=== PATIENT | female | born 1965 ===

== ENCOUNTER 2016-08-11 09:00 | Day surgery (SDC) | payer OTHER ==
[2016-08-11] MEDS ORDERED: Lactated Ringer's 500 ML IV ONE (09:18)
[2016-08-11] MEDS ORDERED: Propofol 10 mg/ml Inj (20 ML) ONE (09:45)
[2016-08-11 10:17] VITALS: TEMP 97.5; O2SAT 100
[2016-08-11 10:30] VITALS: BP 107/67; PULSE 53; RESP 12
== END 2016-08-11 13:00 | disposition home or self-care (01) ==
LOC: H.ENDO 09:00
PROVIDERS: ATTEND Internal Medicine Gastroenterology
DX: Z12.11 Encounter for screening for malignant neoplasm of colon (principal); F32.9 Major depressive disorder, single episode, unspecified; K64.8 Other hemorrhoids

== ENCOUNTER 2016-10-18 16:55 | Emergency (ER) | payer OTHER ==
[2016-10-18 17:06] VITALS: BP 126/82; PULSE 78; RESP 18; O2SAT 99
[2016-10-18 18:10] LABS: BASO # 0.1 K/uL (0.0-0.2); BASO % 0.4 % (0.0-2.0); EOS # 0.2 K/uL (0.0-0.7); EOS % 1.2 % (0.0-4.0); HEMOGLOBIN 12.7 g/dL (12.0-16.0); LYMPH # 1.9 K/uL (1.0-4.3); LYMPH % 13.6 % (20.0-40.0); MEAN CELL VOLUME 87.8 fl (81.0-99.0); MEAN CORPUSCULAR HEMOGLOBIN 29.8 pg (27.0-31.0); MEAN CORPUSCULAR HGB CONC 33.9 g/dL (33.0-37.0); MEAN PLATELET VOLUME 9.6 fl (7.2-11.7); MONO % 7.1 % (0.0-10.0); NEUT # 10.9 K/uL (1.8-7.0); NEUT % 77.7 % (50.0-75.0); RBC 4.26 Mil/uL (3.80-5.20); RED CELL DISTRIBUTION WIDTH 13.5 % (11.5-14.5); WHITE BLOOD COUNT 14.1 K/uL (4.8-10.8)
[2016-10-18 18:16] LABS: VENOUS BLOOD GAS BASE EXCESS 3.6 mmol/L (0.0-2.0); VENOUS BLOOD GAS PCO2 61 mmHg (40-60); VENOUS BLOOD GAS PO2 22 mm/Hg (30-55); VENOUS BLOOD PH 7.32 (7.32-7.43)
[2016-10-18 18:20] LABS: ALB/GLOB RATIO 1.3 (1.0-2.1); ALBUMIN 4.3 g/dL (3.5-5.0); ALT/SGPT 32 U/L (9-52); AST/SGOT 25 U/L (14-36); BLOOD UREA NITROGEN 17 mg/dl (7-17); CALCIUM 8.8 mg/dL (8.4-10.2); GFR AFRICAN-AMERICAN > 60; GFR NON-AFRICAN AMERICAN > 60
--- NOTE | 2016-10-18 19:04 | ED PDOC ---
HPI: General Adult Time Seen by Provider: 10/18/16 17:11 Chief Complaint (Nursing): Abnormal Skin Integrity Chief Complaint (Provider): Abnormal Skin Integrity History Per: Patient History/Exam Limitations: no limitations Onset/Duration Of Symptoms: Days (Since last night, 10/17/2016.) Current Symptoms Are (Timing): Still Present Additional Complaint(s): 50 y/o female presents to the emergency department with a complaint of a left breast pain that started last night, 10/17/2016. Associated with pain, redness, warmth, and a very hard localized area on the breast since this morning. States for the last 3 days she had experienced fever, chills, and body aches and for the past week was experiencing a post nasal drip and runny nose. Patient reports taking Advil for fever; last dose at 14:00 today. Denies cough. PMD: [facility] in [place], [place] Past Medical History Reviewed: Historical Data, Nursing Documentation, Vital Signs Vital Signs: Last Vital Signs Temp 98.5 F 10/18/16 20:38 Pulse 78 10/18/16 17:04 Resp 18 10/18/16 17:04 BP 126/82 10/18/16 17:04 Pulse Ox 99 10/18/16 21:57 - Medical History PMH: No Chronic Diseases - Surgical History Surgical History: No Surg Hx - Family History Family History: States: Unknown Family Hx - Social History Current smoker - smoking cessation education provided: No Alcohol: None Drugs: Denies - Home Medications Home Medications: Ambulatory Orders Medication Instructions Recorded Amoxicillin/Clavulanate [Augmentin 1 tab PO BID #20 tab 10/18/16 875 MG-125 MG] Ibuprofen [Motrin Tab] 600 mg PO Q8 PRN #60 tab 10/18/16 - Allergies Allergies/Adverse Reactions: Allergies Allergy/AdvReac Type Severity Reaction Status Date / Time No Known Allergies Allergy Verified 10/18/16 17:03 Review of Systems ROS Statement: Except As Marked, All Systems Reviewed And Found Negative Constitutional: Positive for: Fever, Chills, Other (Body aches) ENT: Positive for: Nose Discharge (with post nasal drip) Cardiovascular: Positive for: Other (Left breast pain) Respiratory: Negative for: Cough Physical Exam - Reviewed Nursing Documentation Reviewed: Yes Vital Signs Reviewed: Yes - Physical Exam Appears: Positive for: Non-toxic, In Acute Distress (Mild painful distress) Head Exam: Positive for: ATRAUMATIC, NORMAL INSPECTION, NORMOCEPHALIC Skin: Positive for: Normal Color, Warm, Dry Cardiovascular/Chest: Positive for: Regular Rate, Rhythm, Other (left breast erythema extending up from the superior areola tracking caudally with regular boarders. Palpable firm area also just superior to areola and diffusely tender. ). Negative for: Chest Non Tender, Murmur Respiratory: Positive for: Normal Breath Sounds. Negative for: Accessory Muscle Use, Respiratory Distress Gastrointestinal/Abdominal: Positive for: Normal Exam, Soft. Negative for: Tenderness Extremity: Positive for: Normal ROM. Negative for: Pedal Edema Lymphatic: Positive for: Normal Exam. Negative for: Adenopathy (No palpable axillary lymphadenopathy.) Neurologic/Psych: Positive for: Alert, Oriented - Laboratory Results Result Diagrams: 10/18/16 18:00 10/18/16 18:00 - ECG O2 Sat by Pulse Oximetry: 99 (RA) Pulse Ox Interpretation: Normal Medical Decision Making Medical Decision Making: Time: 17:42 Initial impression: Mastitis. Differential includes sepsis, abscess, and breast cellulites. Initial plan: --Venous Blood Gas --COMP metabolic Panel --CBC w/ differential --Blood Culture STAT --IV Insertion --Breast Unilateral Left (US) --Reevaluation Time: 21:45 --Breast US FINDINGS: Solid nodules: None. Cystic masses: None. Architectural distortion: None. Acoustical shadowing: None. Skin thickening: None. Axillary adenopathy: None. IMPRESSION: No sonographic evidence of abscess in the left breast. Annual mammographic screening is recommended unless otherwise clinically indicated. Scribe Attestation: Documented by Lindsey Long, acting as a scribe for Milana Hicks MD. Provider Scribe Attestation: All medical record entries made by the Scribe were at my direction and personally dictated by me. I have reviewed the chart and agree that the record accurately reflects my personal performance of the history, physical exam, medical decision making, and the department course for this patient. I have also personally directed, reviewed, and agree with the discharge instructions and disposition. Disposition - Clinical Impression Clinical Impression: Mastitis - Disposition Referrals: [facility] [Outside] - 10/20/16 Disposition: Routine/Home Disposition Time: 23:00 Condition: IMPROVED Prescriptions: Amoxicillin/Clavulanate [Augmentin 875 MG-125 MG] 1 tab PO BID #20 tab Ibuprofen [Motrin Tab] 600 mg PO Q8 PRN #60 tab PRN Reason: Pain, Moderate (4-7) Instructions: Mastitis (ED) Print Language: TURKMEN
[2016-10-18 20:38] VITALS: TEMP 98.5
--- NOTE | 2016-10-18 21:45 | US ---
EXAM: US Left Breast Complete, limited CLINICAL HISTORY: 50 years old, female; Pain; Breast pain; Left; Additional info: Warm erythematous with localized firm area R/O abs TECHNIQUE: Static sonographic images of the left breast with image documentation utilizing a linear transducer. Imaging was obtained in all four quadrants, retroareolar region, and the axillae. COMPARISON: US - Breast 10/11/2015 8:55:53 AM FINDINGS: Solid nodules: None. Cystic masses: None. Architectural distortion: None. Acoustical shadowing: None. Skin thickening: None. Axillary adenopathy: None. IMPRESSION: No sonographic evidence of abscess in the left breast. Annual mammographic screening is recommended unless otherwise clinically indicated.
[2016-10-18] MEDS ORDERED: Potassium Chloride 20 mEq ER Tab PO STA (21:49)
[2016-10-18] MEDS ORDERED: Ampicillin/Sulbactam 3 GM in Sodium Chloride 0.9% 100 ML IVPB SCH (22:00)
[2016-10-18] MEDS ORDERED: Potassium Chloride 20 mEq ER Tab PO ONE (22:36)
== END 2016-10-19 00:11 | disposition home or self-care (01) ==
LOC: H.ER 16:55
DX: N61.1 Abscess of the breast and nipple (principal)

== ENCOUNTER 2016-11-05 23:00 | Emergency (ER) | payer OTHER ==
[2016-11-06 01:13] LABS: BASO % 0.5 % (0.0-2.0); EOS # 0.2 K/uL (0.0-0.7); HEMOGLOBIN 12.8 g/dL (12.0-16.0); LYMPH # 2.4 K/uL (1.0-4.3); LYMPH % 30.5 % (20.0-40.0); MEAN CELL VOLUME 88.6 fl (81.0-99.0); MEAN CORPUSCULAR HEMOGLOBIN 28.9 pg (27.0-31.0); MEAN CORPUSCULAR HGB CONC 32.6 g/dL (33.0-37.0); MEAN PLATELET VOLUME 9.1 fl (7.2-11.7); MONO # 0.6 K/uL (0.0-0.8); MONO % 7.7 % (0.0-10.0); NEUT # 4.7 K/uL (1.8-7.0); NEUT % 58.3 % (50.0-75.0); RBC 4.41 Mil/uL (3.80-5.20); RED CELL DISTRIBUTION WIDTH 13.7 % (11.5-14.5)
--- NOTE | 2016-11-06 01:16 | ED PDOC ---
HPI: General Adult Time Seen by Provider: 11/05/16 23:32 Chief Complaint (Nursing): Female Genitourinary Chief Complaint (Provider): Multiple Complaints History Per: Patient History/Exam Limitations: no limitations Additional Complaint(s): Elizabeth Cavazos, a 51 year old male, presents to the ED today with multiple complaints. The patient's first complaint is intermittent nose bleeds which she says stopped a few days ago. She states that her nose bleeds are associated with hemoptysis but she only has a cough when her nose bleeds. Denies chest pain , shortness of breath and leg swelling. The patient is also complaining of vaginal bleeding. She reports that she is currently on her menstrual period but her last period was a couple of months ago. She also states that she has only used 2 pads this cycle. The patient reports that she thinks she is menopausal. Denies diarrhea and abdominal pain. She also states that for the past 3 months she has been having swelling in th left breast. She states that she was seen by her PMD and also in the ED where she had a mammography done. The patient states that the problem still persists but there has been no changes. Denies redness, discharge and pain. The patient says she will follow up with her PMD again. Lastly, she states that she has been having head pressure for the past couple days but no pain. She states that it feels more like a pressure rather than pain. The patient states that she has not taken anything for the "pressure" as she did not know what it was. Past Medical History Reviewed: Historical Data, Nursing Documentation, Vital Signs Vital Signs: Last Vital Signs Temp 96.6 F L 11/05/16 23:20 Pulse 70 11/05/16 23:20 Resp 16 11/05/16 23:20 BP 130/86 11/05/16 23:20 Pulse Ox 100 11/06/16 01:55 - Medical History PMH: No Chronic Diseases - Surgical History Surgical History: No Surg Hx - Family History Family History: States: Unknown Family Hx - Home Medications Home Medications: Ambulatory Orders Medication Instructions Recorded No Known Home Med 11/06/16 - Allergies Allergies/Adverse Reactions: Allergies Allergy/AdvReac Type Severity Reaction Status Date / Time No Known Allergies Allergy Verified 11/05/16 23:19 Review of Systems ENT: Positive for: Nose Discharge (Nose bleed.), Other Respiratory: Positive for: Hemoptysis (only with nose bleeds.) Gastrointestinal: Negative for: Abdominal Pain, Diarrhea Genitourinary Female: Positive for: Vaginal Bleeding Neurological: Positive for: Headache (Head Pressure.) Physical Exam - Reviewed Nursing Documentation Reviewed: Yes Vital Signs Reviewed: Yes - Physical Exam Head Exam: Positive for: ATRAUMATIC, NORMAL INSPECTION, NORMOCEPHALIC Skin: Positive for: Normal Color, Warm, Dry Eye Exam: Positive for: Normal appearance, EOMI, PERRL ENT: Positive for: Normal ENT Inspection, Pharynx Is (No blood in pharynx.), Other (dry blood in right nostril but no active bleeding; No pulsatile source of bleeding or blood clots;Small area of erosion of mucosa on right septum.) Neck: Positive for: Normal, Painless ROM, Supple Cardiovascular/Chest: Positive for: Regular Rate, Rhythm, Chest Non Tender. Negative for: Tachycardia Respiratory: Positive for: Normal Breath Sounds. Negative for: Wheezing, Respiratory Distress Gastrointestinal/Abdominal: Positive for: Normal Exam, Soft. Negative for: Tenderness Back: Positive for: Normal Inspection Neurologic/Psych: Positive for: Alert, Oriented, Gait - Laboratory Results Result Diagrams: 11/06/16 00:48 11/06/16 00:48 - ECG O2 Sat by Pulse Oximetry: 100 (RA) Pulse Ox Interpretation: Normal Medical Decision Making Medical Decision Makin Initial Impression: 51 year old female presenting with headache, vaginal bleeding and nose bleed Differentials: Menstrual Period, Dysfunctional Uterine Bleeding, Uterine Fibroids, Headache, Migraine, Tension Headache, Sinusitis Initial Plan: * CT Head w/o Contrast * Basic Metabolic Panel * Dipstick * CBC * PTT * Prothrombin Time * Reevaluation Mammography Report from April 2016 Unilateral Diagnostic mammogram left breast History Abnormal Screening mammogram. Six month follow up Comparison Screening mammogram 10/11/2015 Findings Mammogram No significant abnormalities. No suspicious calcifications, masses or areas of parenchymal distortion. Negative examination for skin thickening, nipple retraction or other pathologic process. No interval change. Impression: BIRADS 2 benign findings. Recommendation: Continue annual screening, mammography , as per ACR guidelines Heterogeneously dense breast tissue which may obscure small masses. Breast Ultrasound October 2016 Comparison US Breast 10/11/2015 Findings No solid nodules No cystic masses No architectural distortion No acoustical shadowing No skin thickening No axillary adenopathy Impression: No sonograpic evidence of abscess in left breast. Annual mammographic screening is recommended unless otherwise clinically indicated. 1:41 CT Head Without Intravenous Contrast TECHNIQUE: Axial computed tomography images of the head/brain without intravenous contrast. This CT exam was performed using one or more of the following dose reduction techniques: automated exposure control, adjustment of the mA and/or kV according to patient size, and/or use of iterative reconstruction technique. Coronal and sagittal reformatted images were created and reviewed. EXAM DATE/TIME: 11/06/2016 12:16 AM COMPARISON: CT - HEAD W/O CONTRAST 07/15/2015 11:19:26 PM FINDINGS: No intracranial hemorrhage. No intracranial edema. No evidence of infarct. Small stable calcification is noted in the left frontal lobe. The sinuses and mastoid air cells are clear. IMPRESSION: No acute findings. Scribe Attestation Documented by Samantha Arriaga acting as a scribe for Wendy Mccloud MD. Provider Attestation All medical record entries made by the Scribe were at my direction and personally dictated by me. I have reviewed the chart and agree that the record accurately reflects my personal performance of the history, physical exam, medical decision making, and the department course for this patient. I have also personally directed, reviewed, and agree with the discharge instructions and disposition. Disposition - Clinical Impression Clinical Impression: Nosebleed, Vaginal bleeding - Patient ED Disposition Is Patient to be Admitted: No Doctor Will See Patient In The: Office Counseled Patient/Family Regarding: Studies Performed, Diagnosis, Need For Followup - Disposition Referrals: [facility] [Outside] Disposition: Routine/Home Disposition Time: 02:19 Condition: GOOD Additional Instructions: Return for recurrent nosebleed. Follow up with your PCP for pelvic ultrasound and mammography. Follow up with your PCP in 2-3 days. Instructions: Menorrhagia (ED), Nosebleed (ED)
[2016-11-06 01:23] LABS: BLOOD UREA NITROGEN 24 mg/dl (7-17); CALCIUM 9.2 mg/dL (8.4-10.2); GFR AFRICAN-AMERICAN > 60; GFR NON-AFRICAN AMERICAN > 60
[2016-11-06 01:36] LABS: INR 1.1 (0.9-1.2); PROTHROMBIN TIME 12.9 Seconds (9.8-13.1)
[2016-11-06 01:37] LABS: PARTIAL THROMBOPLASTIN TIME 31.6 Seconds (25.6-37.1)
--- NOTE | 2016-11-06 01:41 | CT ---
EXAM: CT Head Without Intravenous Contrast CLINICAL HISTORY: 51 years old, female; Signs and symptoms; Numbness / parasthesia; Additional info: Head pressure TECHNIQUE: Axial computed tomography images of the head/brain without intravenous contrast. This CT exam was performed using one or more of the following dose reduction techniques: automated exposure control, adjustment of the mA and/or kV according to patient size, and/or use of iterative reconstruction technique. Coronal and sagittal reformatted images were created and reviewed. EXAM DATE/TIME: 11/06/2016 12:16 AM COMPARISON: CT - HEAD W/O CONTRAST 07/15/2015 11:19:26 PM FINDINGS: No intracranial hemorrhage. No intracranial edema. No evidence of infarct. Small stable calcification is noted in the left frontal lobe. The sinuses and mastoid air cells are clear. IMPRESSION: No acute findings.
[2016-11-06 02:40] VITALS: BP 118/78; PULSE 72; RESP 19; TEMP 98.2; O2SAT 98
== END 2016-11-06 02:40 | disposition home or self-care (01) ==
LOC: H.ER 23:00
DX: N93.9 Abnormal uterine and vaginal bleeding, unspecified (principal); R04.0 Epistaxis; R51 Headache; R04.2 Hemoptysis

== ENCOUNTER 2017-10-04 13:24 | Emergency (ER) | payer OTHER ==
[2017-10-04 13:44] VITALS: TEMP 98
[2017-10-04] MEDS ORDERED: Sodium Chloride 0.9% 1,000 ML IV SCH (15:00)
--- NOTE | 2017-10-04 15:00 | ED PDOC ---
HPI: Back Time Seen by Provider: 10/04/17 14:22 Chief Complaint (Nursing): Back Pain Chief Complaint (Provider): Back/right flank pain History Per: Patient History/Exam Limitations: no limitations Onset/Duration Of Symptoms: Days Current Symptoms Are (Timing): Constant Pain Scale Rating Of: 6 Additional Complaint(s): 51 y/o female with h/o Constipation presents to ED complaining of lower back pain radiating to right flank for more than one month. Denies any back trauma or prior episode. States that pain has been constant, intensity ranging from 3-4 /10, radiating to right flank, aggravates with movements, partially relief with tylenol. Denies lower extremities involvement. Denies numbness, tingling, or weakness of LEs. Also reports intermittent episodes of dysuria, and increase in frequency for one month. PMD: [facility] Past Medical History Vital Signs: Last Vital Signs Temp 98 F 10/04/17 13:40 Pulse 59 L 10/04/17 13:40 Resp 18 10/04/17 13:40 BP 127/84 10/04/17 13:40 Pulse Ox 98 10/04/17 13:40 - Family History Family History: States: Unknown Family Hx - Home Medications Home Medications: Ambulatory Orders Medication Instructions Recorded Naproxen [Naprosyn] 500 mg PO BID PRN #15 tablet 10/04/17 - Allergies Allergies/Adverse Reactions: Allergies Allergy/AdvReac Type Severity Reaction Status Date / Time No Known Allergies Allergy Verified 10/04/17 13:40 Review of Systems ROS Statement: Except As Marked, All Systems Reviewed And Found Negative (as per HPI) Physical Exam - Reviewed Nursing Documentation Reviewed: Yes Vital Signs Reviewed: Yes - Physical Exam Appears: Positive for: Non-toxic, No Acute Distress Skin: Positive for: Warm Eye Exam: Positive for: Normal appearance Neck: Positive for: Normal, Supple Cardiovascular/Chest: Positive for: Regular Rate, Rhythm. Negative for: Chest Non Tender, Edema, Gallop, Irregularly Irregular Respiratory: Positive for: Normal Breath Sounds. Negative for: Decreased Breath Sounds, Accessory Muscle Use, Crackles, Rales, Rhonchi, Wheezing, Respiratory Distress Gastrointestinal/Abdominal: Positive for: Bowel Sounds (present), Soft. Negative for: Tenderness, Distended, Guarding Back: Positive for: Normal Inspection, Other (tender to palpation of lower back) . Negative for: L CVA Tenderness, R CVA Tenderness Extremity: Positive for: Capillary Refill (<2). Negative for: Pedal Edema, Calf Tenderness Neurologic/Psych: Positive for: Alert, Oriented - Laboratory Results Result Diagrams: 10/04/17 15:40 10/04/17 15:40 - ECG O2 Sat by Pulse Oximetry: 98 Medical Decision Making Medical Decision Making: Lower back pain -with right flank radiation -CBC, CMP -UA -IV fluids -Ibuprofen for pain control -Abd & pelvis CT scan w/o contrast case discussed with Dr. Caldwell Re-evaluation improved CBC,CMP WNL UA WNL Abd & pelvis CT scan w/o contrast reported as IMPRESSION: 1. There is mild prominence of the proximal right ureter without definite hydronephrosis periureteral or perinephric reaction. No radiodense urolithiasis bilaterally including the urinary bladder. This may be a function of normal peristalsis. Obstructive uropathy is not favored. Follow-up contrast CT may be performed for added characterization if clinically warranted. 2. Mildly distended gallbladder which is otherwise unremarkable appearing. Clinically correlate nevertheless for potential cholecystitis. 3. Prominent fecal loading may indicate constipation. -Results reviewed with Dr. Caldwell -Pain could be musculoskeletal etiology -Stable for discharge home with recommended f/u as outpatient with PMD in 2-3 days. Disposition - Clinical Impression Clinical Impression: Low back pain - Patient ED Disposition Is Patient to be Admitted: No Discussed With : Bessy Caldwell - Disposition Referrals: [facility] [Outside] Disposition: Routine/Home Disposition Time: 17:48 Condition: IMPROVED Prescriptions: Naproxen [Naprosyn] 500 mg PO BID PRN #15 tablet PRN Reason: Pain, Moderate (4-7) Instructions: Low Back Pain in Adults Forms: [employer] (Citizen Of [place]) Print Language: MAURITIAN
[2017-10-04 15:51] LABS: BASO # 0.1 K/uL (0.0-0.2); BASO % 1.1 % (0.0-2.0); EOS # 0.2 K/uL (0.0-0.7); EOS % 2.7 % (0.0-4.0); HEMOGLOBIN 14.1 g/dL (12.0-16.0); LYMPH % 31.6 % (20.0-40.0); MEAN CELL VOLUME 88.3 fl (81.0-99.0); MEAN CORPUSCULAR HEMOGLOBIN 30.1 pg (27.0-31.0); MEAN CORPUSCULAR HGB CONC 34.1 g/dL (33.0-37.0); MEAN PLATELET VOLUME 9.7 fl (7.2-11.7); MONO # 0.4 K/uL (0.0-0.8); MONO % 5.8 % (0.0-10.0); NEUT # 3.7 K/uL (1.8-7.0); NEUT % 58.8 % (50.0-75.0); RBC 4.67 Mil/uL (3.80-5.20); RED CELL DISTRIBUTION WIDTH 13.7 % (11.5-14.5); WHITE BLOOD COUNT 6.3 K/uL (4.8-10.8)
[2017-10-04 15:59] LABS: SQUAMOUS EPITHIAL 3 /hpf (0-5); URINE BACTERIA RARE (<OCC); URINE BILIRUBIN NEGATIVE (NEGATIVE); URINE BLOOD NEGATIVE (NEGATIVE); URINE CLARITY SLIGHTY-CLOUDY (Clear); URINE COLOR YELLOW (YELLOW); URINE GLUCOSE (UA) NEG (Normal); URINE LEUKOCYTE ESTERASE SMALL Leu/uL (Negative); URINE PROTEIN NEGATIVE (NEGATIVE); URINE UROBILINOGEN 0.2-1.0 mg/dL (0.2-1.0)
[2017-10-04 16:02] LABS: ALB/GLOB RATIO 1.1 (1.0-2.1); ALBUMIN 4.5 g/dL (3.5-5.0); CALCIUM 9.5 mg/dL (8.4-10.2); GFR AFRICAN-AMERICAN > 60; GFR NON-AFRICAN AMERICAN > 60
[2017-10-04 16:04] LABS: ALT/SGPT 27 U/L (9-52); AST/SGOT 35 U/L (14-36); BLOOD UREA NITROGEN 13 mg/dl (7-17)
--- NOTE | 2017-10-04 17:02 | CT ---
PROCEDURE: CT Abdomen and Pelvis without intravenous contrast HISTORY: right flank pain COMPARISON: None. TECHNIQUE: Helical CT of the abdomen and pelvis was performed without oral or intravenous contrast as per referring physician request. Contrast dose: None Radiation dose: Total exam DLP = 503.89 mGy-cm. This CT exam was performed using one or more of the following dose reduction techniques: Automated exposure control, adjustment of the mA and/or kV according to patient size, and/or use of iterative reconstruction technique. FINDINGS: LOWER THORAX: Unremarkable. LIVER: There is a tiny lucency seen in the right lobe liver anteriorly, too small to characterize. GALLBLADDER AND BILE DUCTS: Gallbladder is mildly distended without mural thickening or pericholecystic fluid collection/reaction. No radiodense cholelithiasis associated. Clinically correlate for potential cholecystitis nevertheless. PANCREAS: Unremarkable. No gross lesion or ductal dilatation. SPLEEN: Unremarkable. ADRENALS: Unremarkable. No mass. KIDNEYS AND URETERS: There is some dilatation of the proximal right ureter which may be a function of peristalsis as the mid to distal ureter is normal in caliber no radiodense urolithiasis appreciated including the urinary bladder. No dilatation of the pelvocaliceal system is evident to suggest hydronephrosis at this time. The left kidney is unremarkable swells the left ureter. No perinephric reaction bilaterally. VASCULATURE: Unremarkable. No aortic aneurysm. BOWEL: The stomach is collapsed. There is relatively prominent fecal loading seen throughout the majority colon which may indicate an element of constipation. Clinically correlate further. APPENDIX: Unremarkable. Normal appendix. PERITONEUM: Unremarkable. No free fluid. No free air. LYMPH NODES: Unremarkable. No enlarged lymph nodes. BLADDER: Mildly distended but otherwise unremarkable. REPRODUCTIVE: Unremarkable. BONES: No acute fracture. OTHER FINDINGS: None. IMPRESSION: 1. There is mild prominence of the proximal right ureter without definite hydronephrosis periureteral or perinephric reaction. No radiodense urolithiasis bilaterally including the urinary bladder. This may be a function of normal peristalsis. Obstructive uropathy is not favored. Follow-up contrast CT may be performed for added characterization if clinically warranted. 2. Mildly distended gallbladder which is otherwise unremarkable appearing. Clinically correlate nevertheless for potential cholecystitis. 3. Prominent fecal loading may indicate constipation.
[2017-10-04 17:47] VITALS: BP 133/85; PULSE 60; RESP 16
[2017-10-04 17:48] VITALS: O2SAT 98
== END 2017-10-04 17:45 | disposition home or self-care (01) ==
LOC: H.ER 13:24
DX: M54.5 Low back pain (principal)

== ENCOUNTER 2017-12-11 21:03 | Emergency (ER) | payer SELFPAY ==
[2017-12-11 21:16] VITALS: PULSE 62; RESP 18
--- NOTE | 2017-12-11 21:32 | ED PDOC ---
Lower Extremity Pain/Injury Time Seen by Provider: 12/11/17 21:16 Chief Complaint (Nursing): Lower Extremity Problem/Injury Chief Complaint (Provider): left leg pain History Per: Patient History/Exam Limitations: no limitations Onset/Duration Of Symptoms: Days (3 weeks) Current Symptoms Are (Timing): Still Present Additional Complaint(s): 52 y/o female ambulates to ED for evaluation of left leg pain x 3 weeks, worse x 3 days. Patient states pain noted from left hip to calf; worse at left hip and behind left knee when ambulating. Denies trauma. Denies fever, chest pain, shortness of breath, palpitations, recent travel, numbness/weakness lower extremities. Past Medical History Vital Signs: Last Vital Signs Temp 98.9 F 12/11/17 21:15 Pulse 62 12/11/17 21:15 Resp 18 12/11/17 21:15 BP 140/74 12/11/17 21:15 Pulse Ox 98 12/11/17 21:15 - Family History Family History: States: Unknown Family Hx - Home Medications Home Medications: Ambulatory Orders Medication Instructions Recorded Naproxen [Naprosyn] 500 mg PO BID PRN #15 tablet 10/04/17 Naproxen [Naprosyn] 500 mg PO Q12 PRN #20 tablet 12/11/17 - Allergies Allergies/Adverse Reactions: Allergies Allergy/AdvReac Type Severity Reaction Status Date / Time No Known Allergies Allergy Verified 12/11/17 21:15 Review of Systems ROS Statement: Except As Marked, All Systems Reviewed And Found Negative Musculoskeletal: Positive for: Leg Pain (left) Physical Exam - Reviewed Nursing Documentation Reviewed: Yes Vital Signs Reviewed: Yes - Physical Exam Appears: Positive for: Well, Non-toxic, No Acute Distress Pulses-Dorsalis Pedis (L): 2+ Pulses-Dorsalis Pedis (R): 2+ Pulses-Post. Tibialis (L): 2+ Pulses-Post. Tibialis (R): 2+ Extremity: Positive for: Normal ROM (pain left hip with abduction), Tenderness ( tender to palpate posterior left knee; tenderness with flexion), Calf Tenderness (left). Negative for: Pedal Edema, Capillary Refill, Deformity, Swelling Neurologic/Psych: Positive for: Alert, Oriented (x3). Negative for: Motor/ Sensory Deficits - ECG O2 Sat by Pulse Oximetry: 98 - Other Rad xray left hip X-Ray: Viewed By Me X-Ray Interpretation: no acute findings xray left knee X-Ray: Viewed By Me X-Ray Interpretation: no acute findings - Progress ED Course And Treament: xray left hip, xray left knee, venous duplex left lower extremity, naproxen PO Patient educated on findings, discharged with rx Naproxen DEVAUGHN wrap applied to left knee for comfort Advised RICE Follow up PMD 2-3 days Return precautions given Disposition - Clinical Impression Clinical Impression: Left leg pain - Patient ED Disposition Is Patient to be Admitted: No Counseled Patient/Family Regarding: Studies Performed, Diagnosis, Need For Followup, Rx Given - Disposition Referrals: [facility] [Outside] Disposition: Routine/Home Disposition Time: 23:04 Condition: IMPROVED Prescriptions: Naproxen [Naprosyn] 500 mg PO Q12 PRN #20 tablet PRN Reason: Pain, Moderate (4-7) Instructions: Muscle and Bone Pain (DC) Print Language: FRENCH
[2017-12-11] MEDS: Naproxen 500 MG TAB PO ONE (21:34)
[2017-12-11 23:24] VITALS: BP 147/77; TEMP 97.9; O2SAT 99
--- NOTE | 2017-12-12 09:00 | RAD ---
Date of service: 12/11/2017 HISTORY: atraumatic pain COMPARISON: No prior FINDINGS: BONES: Normal. No fracture. JOINTS: Normal. No osteoarthritis. SOFT TISSUE: Normal. OTHER FINDINGS: None . IMPRESSION: Normal Bone Xray.
--- NOTE | 2017-12-13 10:09 | US ---
Date of service: 12/11/2017 HISTORY: leg pain . PRIORS: None. FINDINGS: 2-D, color and duplex Doppler analysis of the lower extremity venous circulation using routine protocol from the femoral veins through the popliteal veins. Venous compressibility: Normal. Flow and augmentation patterns: Normal. Visualized veins upper third of calf: Normal. Plaza cyst: None. IMPRESSION: No sonographic or Doppler evidence for DVT in left lower extremity.
== END 2017-12-11 23:35 | disposition home or self-care (01) ==
LOC: H.ER 21:03
DX: M79.605 Pain in left leg (principal); M25.552 Pain in left hip

== ENCOUNTER 2018-01-11 16:12 | Emergency (ER) | payer SELFPAY ==
[2018-01-11 16:39] VITALS: RESP 16
--- NOTE | 2018-01-11 17:34 | ED PDOC ---
HPI: Influenza Time Seen by Provider: 01/11/18 16:51 Chief Complaint: Cough, Cold, Congestion Chief Complaint (Provider): Cough, Cold, Congestion History Per: Patient Exam Limitations: no limitations Additional complaint(s):: Patient is a 52 y/o female with history of hypothyroidism who presents to the ED complaining of cough, fever, and body aches for the past x3 days. Patient states that she has been taking Theraflu for body ache symptoms. She also reports having a productive cough resulting in yellow phlegm. She has no other medical complaints. Past Medical History Reviewed: Historical Data, Nursing Documentation, Vital Signs Vital Signs: Last Vital Signs Temp 99.4 F 01/11/18 16:36 Pulse 80 01/11/18 16:36 Resp 16 01/11/18 16:36 BP 142/83 01/11/18 16:36 Pulse Ox 98 01/11/18 16:36 - Medical History PMH: Hypothyroidism - Surgical History Surgical History: No Surg Hx - Family History Family History: States: Unknown Family Hx - Home Medications Home Medications: Ambulatory Orders Medication Instructions Recorded Naproxen [Naprosyn] 500 mg PO BID PRN #15 tablet 10/04/17 Naproxen [Naprosyn] 500 mg PO Q12 PRN #20 tablet 12/11/17 Guaifen/Phenyleph/Acetaminophn 1 tab PO BID #14 tab 01/11/18 [Mucinex Fast-Max Cold & Sinus 325 mg-200 mg-5] - Allergies Allergies/Adverse Reactions: Allergies Allergy/AdvReac Type Severity Reaction Status Date / Time No Known Allergies Allergy Verified 12/11/17 21:15 Review of Systems ROS Statement: Except As Marked, All Systems Reviewed And Found Negative Constitutional: Positive for: Fever, Malaise (body aches) Respiratory: Positive for: Cough Physical Exam - Reviewed Nursing Documentation Reviewed: Yes Vital Signs Reviewed: Yes - Physical Exam Appears: Positive for: Non-toxic, No Acute Distress Head Exam: Positive for: ATRAUMATIC Skin: Positive for: Normal Color, Warm, DRY Eye Exam: Positive for: EOMI, Normal appearance, PERRL Cardiovascular/Chest: Positive for: Regular Rate, Rhythm. Negative for: Murmur, Bradycardia, Tachycardia Respiratory: Positive for: Normal Breath Sounds. Negative for: Respiratory Distress Extremity: Positive for: Normal ROM. Negative for: Pedal Edema, Deformity Neurologic/Psych: Positive for: Alert, Oriented. Negative for: Motor/Sensory Deficits Medical Decision Making Medical Decision Making: Time: 17:27 Initial Impression: Cough, fever, and body ache Initial Plan: --CXR 2 views --Influenza A B No acute cardiopulmonary disease. Influenza (-) ------- Scribe Attestation: Documented by Parth Tellez, acting as a scribe for Lissett Soliz PA-C. Provider Scribe Attestation: All medical record entries made by the Scribe were at my direction and personally dictated by me. I have reviewed the chart and agree that the record accurately reflects my personal performance of the history, physical exam, medical decision making, and the department course for this patient. I have also personally directed, reviewed, and agree with the discharge instructions and disposition. - ECG O2 Sat by Pulse Oximetry: 98 Disposition - Clinical Impression Clinical Impression: Viral illness - Patient ED Disposition Is Patient to be Admitted: No Counseled Patient/Family Regarding: Diagnosis, Need For Followup, Rx Given - Disposition Disposition: Routine/Home Disposition Time: 19:19 Condition: STABLE Prescriptions: Guaifen/Phenyleph/Acetaminophn [Mucinex Fast-Max Cold & Sinus 325 mg-200 mg-5] 1 tab PO BID #14 tab Instructions: Viral Syndrome (DC) Forms: [employer] ([place])
--- NOTE | 2018-01-11 18:37 | RAD ---
Date of service: 01/11/2018 HISTORY: Cough COMPARISON: 12/21/2015 TECHNIQUE: Chest PA and lateral FINDINGS: LUNGS: No active pulmonary disease. PLEURA: No significant pleural effusion identified. No pneumothorax apparent. CARDIOVASCULAR: No radiographic findings to suggest acute or significant cardiovascular disease. OSSEOUS STRUCTURES: No significant abnormalities. VISUALIZED UPPER ABDOMEN: Normal. OTHER FINDINGS: None. IMPRESSION: No active disease. No significant interval change compared to the prior examination(s).
[2018-01-11 19:43] VITALS: BP 123/74; PULSE 82; TEMP 98.5; O2SAT 97
== END 2018-01-11 19:30 | disposition home or self-care (01) ==
LOC: H.ER 16:12
DX: J11.1 Influenza due to unidentified influenza virus with other respiratory manifestations (principal); E03.9 Hypothyroidism, unspecified

== ENCOUNTER 2018-05-21 16:58 | Emergency (ER) | payer SELFPAY ==
[2018-05-21 17:07] VITALS: BP 124/75; PULSE 70; RESP 19; TEMP 97.5; O2SAT 100
--- NOTE | 2018-05-21 17:59 | ED PDOC ---
Lower Extremity Pain/Injury Time Seen by Provider: 05/21/18 17:56 Chief Complaint (Nursing): Lower Extremity Problem/Injury Chief Complaint (Provider): left thigh pain History Per: Patient (52 y/o woman with ongoing left thigh pain not imprving with motrin. Seen by pmd with 3 xry. Denies any falls.) Past Medical History Reviewed: Historical Data, Nursing Documentation, Vital Signs Vital Signs: Last Vital Signs Temp 97.5 F L 05/21/18 17:04 Pulse 70 05/21/18 17:04 Resp 19 05/21/18 17:04 BP 124/75 05/21/18 17:04 Pulse Ox 100 05/21/18 17:04 - Medical History PMH: Hypothyroidism - Family History Family History: States: Unknown Family Hx - Home Medications Home Medications: Ambulatory Orders Medication Instructions Recorded Naproxen [Naprosyn] 500 mg PO BID PRN #15 tablet 10/04/17 Naproxen [Naprosyn] 500 mg PO Q12 PRN #20 tablet 12/11/17 Guaifen/Phenyleph/Acetaminophn 1 tab PO BID #14 tab 01/11/18 [Mucinex Fast-Max Cold & Sinus 325 mg-200 mg-5] Diclofenac Sodium [Voltaren] 2 gm TP TID PRN #100 gel..gram. 05/21/18 diaZEpam [Valium] 5 mg PO Q8 PRN #2 tab 05/21/18 - Allergies Allergies/Adverse Reactions: Allergies Allergy/AdvReac Type Severity Reaction Status Date / Time No Known Allergies Allergy Verified 12/11/17 21:15 Review of Systems ROS Statement: Except As Marked, All Systems Reviewed And Found Negative Physical Exam - Reviewed Nursing Documentation Reviewed: Yes Vital Signs Reviewed: Yes - Physical Exam Appears: Positive for: Well, Non-toxic, No Acute Distress Head Exam: Positive for: ATRAUMATIC, NORMAL INSPECTION, NORMOCEPHALIC Skin: Positive for: Normal Color, Warm, DRY Eye Exam: Positive for: EOMI, Normal appearance, PERRL ENT: Positive for: Normal ENT Inspection Neck: Positive for: Normal, Painless ROM Cardiovascular/Chest: Positive for: Regular Rate, Rhythm Respiratory: Positive for: CNT, Normal Breath Sounds Gastrointestinal/Abdominal: Positive for: Normal Exam, Soft Back: Positive for: Normal Inspection Extremity: Positive for: Normal ROM, Other (tenderness medial left thigh) Neurologic/Psych: Positive for: Alert, Oriented - ECG O2 Sat by Pulse Oximetry: 100 Disposition - Clinical Impression Clinical Impression: Thigh pain - Patient ED Disposition Is Patient to be Admitted: No - Disposition Referrals: José Grijalva MD [Primary Care Provider] - Promise Roach MD [Staff Provider] - Disposition: Routine/Home Disposition Time: 17:58 Condition: FAIR Prescriptions: diaZEpam [Valium] 5 mg PO Q8 PRN #2 tab PRN Reason: Muscle Spasm Diclofenac Sodium [Voltaren] 2 gm TP TID PRN #100 gel..gram. PRN Reason: Pain, Moderate (4-7) Instructions: Muscle and Bone Pain (DC) Forms: [facility] ED School/Work Excuse Print Language: OMANI
== END 2018-05-21 18:17 | disposition home or self-care (01) ==
LOC: H.ER 16:58 → SUPCPDRO 16:58 → H.ER 18:17
DX: M79.652 Pain in left thigh (principal); E03.9 Hypothyroidism, unspecified

== ENCOUNTER 2018-07-08 16:29 | Emergency (ER) | payer SELFPAY ==
[2018-07-08 17:48] VITALS: RESP 18; TEMP 98.1; O2SAT 99
--- NOTE | 2018-07-08 20:00 | ED PDOC ---
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 Of note, patient's history was difficult to obtain through supervisor rework as story was unclear. She states that she was getting her blood taken earlier today when she had a sudden onset headache and felt her face become flushed. The place she was at told her they could not check her blood pressure there and to come into the ED for that. Currently, however, her headache resolved after about 20 minutes, and denies any associated chest pain, vision changes, light headedness, and dizziness. Her only complaint at the moment is having cold toes as she is wearing thin tights and the hospital is cold. PMD: Mel Hernandez Past Medical History Reviewed: Historical Data, Nursing Documentation, Vital Signs Vital Signs: Last Vital Signs Temp 98.1 F 07/08/18 17:48 Pulse 740 H 07/08/18 17:48 Resp 18 07/08/18 17:48 BP 158/77 H 07/08/18 17:48 Pulse Ox 99 07/08/18 17:48 - Medical History PMH: Hypothyroidism - Surgical History Surgical History: No Surg Hx - Family History Family History: States: Unknown Family Hx - Social History Current smoker - smoking cessation education provided: No Alcohol: None Drugs: Denies - Home Medications Home Medications: Ambulatory Orders Medication Instructions Recorded Naproxen [Naprosyn] 500 mg PO BID PRN #15 tablet 10/04/17 Naproxen [Naprosyn] 500 mg PO Q12 PRN #20 tablet 12/11/17 Guaifen/Phenyleph/Acetaminophn 1 tab PO BID #14 tab 01/11/18 [Mucinex Fast-Max Cold & Sinus 325 mg-200 mg-5] Diclofenac Sodium [Voltaren] 2 gm TP TID PRN #100 gel..gram. 05/21/18 diaZEpam [Valium] 5 mg PO Q8 PRN #2 tab 05/21/18 - Allergies Allergies/Adverse Reactions: Allergies Allergy/AdvReac Type Severity Reaction Status Date / Time No Known Allergies Allergy Verified 12/11/17 21:15 Review of Systems ROS Statement: Except As Marked, All Systems Reviewed And Found Negative Constitutional: Positive for: Other (flushed face, since resolved; cold toes currently) Eyes: Negative for: Vision Change Cardiovascular: Negative for: Chest Pain, Light Headedness Neurological: Positive for: Headache (but since resolved). Negative for: Dizziness Physical Exam - Reviewed Nursing Documentation Reviewed: Yes Vital Signs Reviewed: Yes - Physical Exam Comments: GENERAL APPEARANCE: Patient is awake, alert, oriented x 3, in no acute distress. SKIN: Warm, dry; (-) cyanosis; (-) rash. HEAD: (-) scalp swelling or tenderness, (-) temporal artery tenderness. EYES: (-) conjunctival pallor, (-) scleral icterus. ENMT: (-) sinus tenderness; mucous membranes are moist. NECK: (-) tenderness, (-) stiffness, (-) meningismus, (-) lymphadenopathy. CHEST AND RESPIRATORY: (-) rales, (-) rhonchi, (-) wheezes; breath sounds equal bilaterally. HEART AND CARDIOVASCULAR: (-) irregularity; (-) murmur, (-) gallop. ABDOMEN AND GI: Soft; (-) tenderness. EXTREMITIES: (-) deformity. NEURO AND PSYCH: Mental status as above. bilingual teacher aide: intact. Normal finger to nose. All reflexes symmetric throughout. Pupils equal and reactive; EOMI; (-) facial asymmetry; tongue and uvula midline. Strength and DTRs symmetric. Babinski normal bilaterally. - ECG O2 Sat by Pulse Oximetry: 99 (RA) Pulse Ox Interpretation: Normal Medical Decision Making Medical Decision Making: Time: 1899 Initial Impression: headache, concern for high blood pressure Initial Plan: --Will monitor patient and obtain repeat vitals, as patient is currently asymptomatic and in NAD. Encouraged to follow up with her PMD. Pt's vital signs are stable, slightly elevated BP, pt reports no history, no associated symptoms, except that she is a bit stressed as her young son is a pt currently being evaluated for psych issues. Pt is neurologically intact, VSS, stable for dc Discussed diagnosis, treatment, return precautions and f/u with pt who is understanding, in agreement and stable for dc Scribe Attestation: Documented by Kelly Baker, acting as a scribe for Elio Muñoz PA-C. Provider Scribe Attestation: All medical record entries made by the Scribe were at my direction and personally dictated by me. I have reviewed the chart and agree that the record accurately reflects my personal performance of the history, physical exam, medical decision making, and the department course for this patient. I have also personally directed, reviewed, and agree with the discharge instructions and disposition. Disposition - Clinical Impression Clinical Impression: Headache - Patient ED Disposition Is Patient to be Admitted: No Counseled Patient/Family Regarding: Studies Performed, Diagnosis, Need For Followup - Disposition Referrals: Mel Hernandez MD [Staff Provider] - Disposition: Routine/Home Disposition Time: 20:37 Condition: STABLE Additional Instructions: Regrese a la ED para sntomas nuevos o que empeoran, fiebre> 100.4, cambios en la visin, dolor en el pecho, mareo o mareo, dificultad para caminar. Fadumo un seguimiento con berg mdico de atencin primaria en 2-3 kelly.Return to ED for new or worsening symptoms, fever >100.4, changes in vision, chest pain, lightheaded or dizzy, difficulty walking. Follow up with your primary care doctor in 2-3 da ys. Instructions: Headache, Adult Forms: [employer] ([place]) Print Language: MACEDONIAN - POA Present On Arrival: None
[2018-07-08 20:40] VITALS: BP 145/82; PULSE 66
== END 2018-07-08 20:45 | disposition home or self-care (01) ==
LOC: H.ER 16:29
DX: R51 Headache (principal); E03.9 Hypothyroidism, unspecified